=== PATIENT | female | born 1990 | race Caucasian/White ===

== ENCOUNTER → 2018-08-05 09:42 | Outpatient (CLI) | payer BC, SELFPAY ==
[2018-08-05 10:03] LABS: Hematocrit 41.6 % (37-47); Hemoglobin 13.9 g/dl (12.0-15.0); Mean Corp Hgb Conc 33.4 g/gl (32-36); Mean Corpuscular Hgb 28.3 pg (27.0-32.0); Mean Corpuscular Volume 84.6 fL (81-99); Mean Platelet Vol. 11.3 fl (6.2-12.0); Platelet Count 208 K/mm3 (150-450); RBC Distribution Width CV 12.7 % (11.6-14.6); RBC Distribution Width SD 38.7 fl (35.1-43.9); Red Blood Count 4.92 M/mm3 (4.2-5.4); White Blood Count 7.5 K/mm3 (4.4-11.0)
[2018-08-05 10:04] LABS: Scan Indicated on CBC? Y/N NO
[2018-08-05 10:27] LABS: AST(SGOT) 16 U/L (15-37); Alanine Aminotransfer ALT/SGPT 22 U/L (13-56); Albumin, Serum 3.8 g/dL (3.2-5.0); Alkaline Phosphatase 79 U/L (45-117); Anion Gap 10 (5-15); BUN 9 mg/dL (7-18); BUN/Creat Ratio 12.8 RATIO (10-20); Calcium,Total 9.1 mg/dL (8.5-10.1); Chloride 105 mmol/L (98-107); EST Glomerular Filtration Rate 106 mL/min (>60); Est Glom Filt Rate - Afr Amer 129 mL/min (>60); Glucose 107 mg/dL (74-106); Potassium 3.9 mmol/L (3.5-5.1); Protein, Total 7.8 g/dL (6.4-8.2); Sodium Level 139 mmol/L (136-145); Thyroid Stim Hormone (TSH) 1.21 uIU/mL (0.358-3.74)
== END ==
PROVIDERS: Family Provider Nurse Practitioner Family; PCP Nurse Practitioner Family; Visit Provider Nurse Practitioner Family
DX: R53.83 Other fatigue (principal); F41.9 Anxiety disorder, unspecified
CPT/HCPCS: 80053; 84443; 85027

== ENCOUNTER → 2019-04-28 | Outpatient (CLI) | payer BC, SELFPAY ==
[2019-04-28 13:38] LABS: Hematocrit 37.3 % (37-47); Hemoglobin 12.2 g/dl (12.0-15.0); Mean Corp Hgb Conc 32.7 g/gl (32-36); Mean Corpuscular Hgb 27.9 pg (27.0-32.0); Mean Corpuscular Volume 85.4 fL (81-99); Mean Platelet Vol. 11.3 fl (6.2-12.0); Platelet Count 254 K/mm3 (150-450); RBC Distribution Width CV 13.1 % (11.6-14.6); RBC Distribution Width SD 40.9 fl (35.1-43.9); Red Blood Count 4.37 M/mm3 (4.2-5.4); Scan Indicated on CBC? Y/N NO; White Blood Count 7.1 K/mm3 (4.4-11.0)
[2019-04-28 14:00] LABS: AST(SGOT) 18 U/L (15-37); Alanine Aminotransfer ALT/SGPT 31 U/L (13-56); Albumin, Serum 3.9 g/dL (3.2-5.0); Alkaline Phosphatase 75 U/L (45-117); Anion Gap 7 (5-15); BUN 10 mg/dL (7-18); BUN/Creat Ratio 14.9 RATIO (10-20); Calcium,Total 9.1 mg/dL (8.5-10.1); Chloride 106 mmol/L (98-107); Creatinine, Serum 0.67 mg/dL (0.55-1.02); EST Glomerular Filtration Rate 112 mL/min (>60); Est Glom Filt Rate - Afr Amer 135 mL/min (>60); Glucose 79 mg/dL (74-106); Potassium 3.8 mmol/L (3.5-5.1); Protein, Total 7.9 g/dL (6.4-8.2); Sodium Level 141 mmol/L (136-145); Thyroid Stim Hormone (TSH) 0.91 uIU/mL (0.358-3.74)
== END | disposition home or self-care (01) ==
LOC: LABSPEC 13:13
PROVIDERS: Family Provider Nurse Practitioner Family; PCP Nurse Practitioner Family; Referring Provider Nurse Practitioner Family; Visit Provider Nurse Practitioner Family
DX: F41.9 Anxiety disorder, unspecified (principal)
CPT/HCPCS: 80053; 84443; 85027

== ENCOUNTER 2020-06-30 00:30 | Inpatient (IN) | payer BC, SELFPAY ==
[2017-11-30 19:51] VITALS: BMI 30.1
[2020-06-29 23:31] VITALS: TEMP 36.2; TEMP 37.8
[2020-06-29 23:36] VITALS: BP 120/72; PULSE 71
[2020-06-29 23:57] VITALS: TEMP 37.9
[2020-06-30] VITALS (39 sets, daily range): BP systolic 89–136; BP diastolic 51–73; PULSE 64–171; RESP 14–16; TEMP 36.2–37.6; O2SAT 83–100; BMI 30.1
[2020-06-30 00:26] LABS: ROM Internal Control Test YES-OK TO RESULT pt. (Internal QC)
[2020-06-30 00:28] LABS: ROM Patient Test POSITIVE (Negative)
[2020-06-30] MEDS: Lactated Ringers 1,000 ML 50 ML IV (01:00)
[2020-06-30] MEDS: Lactated Ringers 500 ML 999 ML IV (01:05)
[2020-06-30 01:14] LABS: Absolute Lymphocyte Count 1.41 X10^3/uL (0.83-4.51); Absolute Neutrophil Count 8.5 X10^3/uL (2.0-7.7); Basophil# 0.04 X10^3/uL; Basophil% 0.4 % (0-1); Eosinophil# 0.03 X10^3/uL; Eosinophils% 0.3 % (0-5); Hematocrit 35.9 % (37-47); Hemoglobin 11.9 g/dL (12.0-15.0); Lymphocyte # 1.41 X10^3/ul (4.0); Lymphocyte % 13.4 % (19-41); Mean Corp Hgb Conc 33.1 g/dL (32-36); Mean Corpuscular Volume 81.4 fL (81-99); Mean Platelet Vol. 11.4 fl (6.2-12.0); Monocyte# 0.49 X10^3/uL; Monocyte% 4.6 % (0-10); NRBC Flagged by Analyzer 0 % (0-5); Neutrophil # 8.52 X10^3/uL (2.7-7.7); Neutrophil % 80.8 % (47-70); Platelet Count 172 K/mm3 (150-450); RBC Distribution Width CV 14.6 % (11.6-14.6); RBC Distribution Width SD 42.4 fl (35.1-43.9); Red Blood Count 4.41 M/mm3 (4.2-5.4); White Blood Count 10.5 K/mm3 (4.4-11.0)
[2020-06-30] MEDS: Ondansetron 4 MG/2 ML Vial IV (01:17)
[2020-06-30] MEDS: fentaNYL-bupivacaine (epidural) 100 ML BAG EPIDURAL (01:54)
[2020-06-30 02:50] LABS: Probe Check PASS; Specimen Processing Control PASS
--- NOTE | 2020-06-30 03:00 | PCM.HP.OB ---
- Problem List (1) Active labor at term Status: Acute History Date of Admission: 11/30/17 Final YASMEEN: 07/02/20 Final YASMEEN Source: US <20 weeks Gestational age: 39 Weeks and 5 Days History of this : This is a 29 year-old, G [2], P [1001], at 39 weeks gestational age. Presented to labor and delivery in active labor with contractions. uncomplicated. Allergies No Known Allergies Allergy (Verified 06/30/20 01:03) Home Medications: Home Medications Tablet 1 tab PO DAILY 11/30/17 Zoloft 75 mg DAILY 06/29/20 Magnesium 200 mg PO 06/30/20 Smoking Status: Never smoker Alcohol: None Number of Fetus(es): 1 NST - FHR Rate Baby A Baseline: 125 Variability:: Moderate Accelerations:: 15 x 15 Decelerations:: None NST Reactive:: Yes FHR Category:: Category I Uterine Activity:: every 2-4 minutes, strong History Past Pregnancies: Past Pregnancies Delivery Date Name GA/ Weeks Outcome Route Wt Infant Sex Labor Length Anesthesia Delivery Location Provider FOB Labs: Mom's Labs & Results 06/29/20 06/30/20 06/30/20 23:45 01:00 01:00 WBC 10.5 RBC 4.41 Hgb 11.9 L Hct 35.9 L MCV 81.4 MCH 27.0 MCHC 33.1 RDW Std Deviation 42.4 RDW Coeff of Sherwin 14.6 Plt Count 172 MPV 11.4 Immature Gran % (Auto) 0.500 Neut % (Auto) 80.8 H Lymph % (Auto) 13.4 L Kaufman % (Auto) 4.6 Eos % (Auto) 0.3 Baso % (Auto) 0.4 Absolute Neuts (auto) 8.5 H Absolute Lymphs (auto) 1.41 Nucleated RBC % 0 Vag Amniotic Fld Detect POSITIVE H COVID-19 (ROBIN) Blood Type O POSITIVE Antibody Screen NEGATIVE 06/30/20 01:13 WBC RBC Hgb Hct MCV MCH MCHC RDW Std Deviation RDW Coeff of Sherwin Plt Count MPV Immature Gran % (Auto) Neut % (Auto) Lymph % (Auto) Kaufman % (Auto) Eos % (Auto) Baso % (Auto) Absolute Neuts (auto) Absolute Lymphs (auto) Nucleated RBC % Vag Amniotic Fld Detect COVID-19 (ROBIN) Not Detected Blood Type Antibody Screen Course Did the patient receive Yes care? Labs Blood Type: O RH: POSITIVE RPR/VDRL/Syphilis Nonreactive Rubella status Immune HbSAg Negative Date Done: 12/14/19 Chlamydia Negative Gonorrhea Negative HIV/AIDS Non-Reactive Group B Strep: Negative Current Obstetrical History Gestational Diabetes No Incompetent Cervix No Infertility No IUGR No Macrosomia No Hypertension/Pre-eclampsia No Placenta Previa/Abruption No PTL/PROM No Uterine anomaly No Oligohydramnios No Polyhydramnios No Multiple gestation No Past Medical History Asthma No Diabetes No Hypertension No Heart disease No Mitral valve prolapse No Neurologic/Seizure disorder/ No Migraines Kidney disease No Liver disease No Varicosities No Clotting disorders/Hx of DVT No Thyroid Dysfunction No Other medical diseases No Psychiatric disorders Yes: anxiety Major trauma No Abnormal PAP smear No Sleep apnea No Mammogram in the last 2 years No Social History Marital Status: Alleged father Leonard Hx Smoking No Smoking Status Never smoker How long have you used n/a substances (years)? Expected Infant Delivery Method: Spontaneous Vaginal Review of Systems Constitutional: Denies: Chills, Fever, Weight Change HEENT: Denies: Head Aches, Sinus Congestion, Sinus Drainage Cardiovascular: Denies: Chest Pain, Palpitations Respiratory: Denies: Cough, Shortness of breath at rest, Sputum production Gastrointestinal: Denies: Abdominal Pain, Nausea, Vomiting Genitourinary: Denies: Dysuria Musculoskeletal: Denies: Joint Pain, Joint Tenderness Skin: Denies: Rash, Wounds Neurological: Denies: Numbness, Tingling, Focal weakness Psychiatric: Denies: Anxiety, Depression, Homicidal Ideations, Suicidal Ideations Hematologic/ Lymphatic: Denies: Easy Bruising, Easy Bleeding Physical Exam Vitals: Vital Signs Temp Pulse BP Pulse Ox 98.8 F 64 105/51 L 88 06/30/20 02:47 06/30/20 02:53 06/30/20 02:53 06/30/20 02:42 General: Alert, Oriented x3, No apparent distress HEENT: Atraumatic, Normocephalic Cardiovascular: Regular rate, Regular Rhythm, No murmurs Lungs: Clear to auscultation, Normal air movement, No rhonchi, No wheeze Abdomen: Bowel Sounds Present, Gravid Extremities:: No edema Neurological: Neuro grossly intact [employer] REP: Normal external genitalia Estimated gestational size: Appropriate for gestational size Presentation: Cephalic Cervix Dilation (cm): 10 - BBOW, AROM for small amount of clear fluid Station: 1 Effacement (%): 100 Assessment/Plan All Active Problems Active labor at term (Acute) This is a 29 year-old, G [2], P [1001], at 39 weeks gestational age. A:Active Labor Category 1 FHT P: 1) Admit to labor and delivery 2) IV and routine labs. COVID test 3) Epidural for pain management 4) Continuous EFM 5) notified for patient status
[2020-06-30] MEDS: Oxytocin 30 units/NS 500 ml 30 UNITS/500 ML IV.SOLN 334 UNITS IV (03:13)
--- NOTE | 2020-06-30 03:29 | PCM.OPRPT ---
Problem List (1) Active labor at term Status: Acute (2) Vaginal delivery Status: Acute (3) Second degree perineal laceration Status: Acute Vaginal Delivery Maternal Presentation: Active Labor Amniotic Membrane Rupture Type: Artificial Amniotic Fluid Description: Clear Final YASMEEN: 07/02/20 Final YASMEEN Source: US <20 weeks Gestational age: 39 Weeks and 5 Days Date of Procedure: 06/30/20 Pre-Operative Diagnosis: active labor Post-Operative Diagnosis: Surgery/ Procedure Performed: Spontaneous Vaginal Delivery Type of Anesthesia: Epidural Description of Procedure: Progressed to complete with bulging bag of water. AROM clear fluid. Strong pushing efforts. of viable male infant over first degree perineal laceration. APGARS 7, 9. Infant head delivered with body forthcoming, CANx1 delivered through. Placed on maternal abdomen, strong cry. Mouth and nares suctioned for secretions. Terminal meconium. Pitocin started for active 3rd stage management. Cord clamped and cut by father of baby. Placenta delivered via katie intact with maternal effort, 3 vessel cord. Perineum inspected and revealed first degree perineal laceration. Repaired under epidural analgesia with 3.o vicryl rapide. Well approximated and hemostasis achieved. Fundus firm, EBL 200ml. Vaginal sweep and instrument count completed. Mom and baby stable. Family bonding well. Planning to breastfeed. notified. Presentation: Vertex Placental Delivery Description: Spontaneous Placenta Disposition: [facility] Cord Vessel Description: 3 Vessels Cord Entanglement: Around neck x 1, loose Estimated Blood Loss: 200 ml A gender: Male (1 minute): 7 (5 minute): 9 Episiotomy Description: None Laceration: 1st degree Medications given after delivery: IV Pitocin Complications: None
[2020-06-30] MEDS: 0.9% Saline Lock 10 ML Syringe IV (05:47)
[2020-06-30] MEDS: Ibuprofen 600 MG Tablet PO (17:09)
[2020-06-30] MEDS: Acetaminophen 500 MG Tablet 1000 MG PO (19:48)
[2020-07-01] VITALS: BP 115/68; PULSE 69; RESP 16; TEMP 37.3
[2020-07-01] MEDS: Ibuprofen 600 MG Tablet PO ×2 (00:01→07:51)
[2020-07-01 00:04] VITALS: BP 115/68; PULSE 67; TEMP 37.2
[2020-07-01 03:36] VITALS: TEMP 37
[2020-07-01 03:37] VITALS: BP 113/62; PULSE 73; RESP 16; TEMP 36.7
[2020-07-01] MEDS: Acetaminophen 500 MG Tablet 1000 MG PO (04:35)
[2020-07-01 06:50] LABS: Hemoglobin 10.7 g/dL (12.0-15.0); Mean Corp Hgb Conc 32.4 g/dL (32-36); Mean Corpuscular Hgb 27.5 pg (27.0-32.0); Mean Corpuscular Volume 84.8 fL (81-99); Mean Platelet Vol. 11.3 fl (6.2-12.0); Platelet Count 142 K/mm3 (150-450); RBC Distribution Width CV 14.8 % (11.6-14.6); RBC Distribution Width SD 45.2 fl (35.1-43.9); Red Blood Count 3.89 M/mm3 (4.2-5.4); White Blood Count 10.9 K/mm3 (4.4-11.0)
[2020-07-01 07:37] VITALS: BP 118/59; PULSE 67; TEMP 36.3
[2020-07-01 08:03] VITALS: BP 118/59; PULSE 67; RESP 16; TEMP 36.9; O2SAT 99
--- NOTE | 2020-07-01 09:55 | PCM.PN.OB ---
Patient Problems: Active and Suspected Problems Active labor at term (Acute) Vaginal delivery (Acute) Second degree perineal laceration (Acute) Subjective: Doing well per patient and nursing staff. Ambulating and taking PO without difficulty. Voiding and passing flatus. . Lochia normal. Planning d/C home today. - Physical Exam Vitals/I&O's: Vital Signs Temp Pulse Resp BP Pulse Ox 98.5 F 67 16 118/59 L 99 07/01/20 08:03 07/01/20 08:03 07/01/20 08:03 07/01/20 08:03 07/01/20 08:03 Oxygen Delivery Method Room Air Weight: 181 lb Body Mass Index (BMI) 30.1 Intake and Output for Last 24 Hours 06/29/20 06/30/20 07/01/20 23:59 23:59 23:59 Intake Total 1109.17 / 1109.17 Output Total 900 / 900 Balance 209.17 / 209.17 General: Alert, Oriented x3, Cooperative HEENT: Atraumatic, Normocephalic Neck: Trachea Midline Lungs: Clear to auscultation, Normal air movement, No rhonchi, No wheeze Cardiovascular: Regular rate, Regular Rhythm, No murmurs Abdomen: Bowel Sounds Present, Soft - fundus firm 2 below U Extremities: No edema Neurological: Deep Tendon Reflexes 2+/4 and Symmetrical Psych/Mental Status: Normal Affect, Appropriate Laboratory Results 07/01/20 06:40: WBC 10.9, RBC 3.89 L, Hgb 10.7 L, Hct 33.0 L, MCV 84.8, MCH 27.5, MCHC 32.4, RDW Std Deviation 45.2 H, RDW Coeff of Sherwin 14.8 H, Plt Count 142 L, MPV 11.3 Current Medications Acetaminophen (Tylenol) 1,000 mg PO Q8H PRN PRN PRN Reason: Pain Score 1-10/10 Last Admin: 07/01/20 04:35 Dose: 1,000 mg Documented by: Bisacodyl (Dulcolax) 10 mg RECTAL UD PRN PRN Reason: If no BM Dibucaine (Dibucaine) 1 applic TOPICAL TID PRN PRN; Protocol PRN Reason: Discomfort Hydrocortisone (Hytone) 1 applic TOPICAL TID PRN PRN; Protocol PRN Reason: Discomfort Ibuprofen (Motrin) 600 mg PO Q6H PRN PRN PRN Reason: Pain Score 1-10/10 Last Admin: 07/01/20 07:51 Dose: 600 mg Documented by: Methylergonovine Maleate (Methergine) 0.2 mg IM X1 PRN PRN Reason: Excess bleeding/uterine atony Ondansetron HCl (Zofran) 4 mg IV Q4H PRN PRN PRN Reason: Nausea Senna/Docusate Sodium (Senokot-S, Noemy-Colace) 1 - 2 tablet PO DAILY PRN PRN PRN Reason: Constipation Simethicone (Mylicon) 80 mg PO PCHS PRN PRN Reason: Indigestion/Stomach pain Sodium Chloride () 5 - 15 ml IV UD PRN PRN Reason: SALINE FLUSH Last Admin: 06/30/20 05:47 Dose: 10 ml Documented by: Medical Necessity - Tobacco Use Smoking Status: Never smoker Assessment/Plan All Active Problems Active labor at term (Acute) Vaginal delivery (Acute) Second degree perineal laceration (Acute) A:PPD #1 P: 1) Routine care 2) Hgb and vitals stable 3) d/C home 4) follow up in 2weeks virtual visit and 6 weeks in office
--- NOTE | 2020-07-01 09:58 | DCINST_ITS ---
Discharge Diet: No Restrictions Discharge Activity: Return to Normal Activity, May not drive while taking narcotic pain medications., May Shower May resume sexual activity in: 4-6 weeks Weight Bearing Status: Full weight bearing Additional Activity Instructions:: Nothing in the vagina for 4-6 weeks. You may return to work/school in 6 weeks. Call your doctor if your incision/area has: Continuous Slow Oozing, Sudden Increased Bleeding, Increased Pain/ Swelling, Increased Redness, Foul Smelling Discharge Call your doctor if you observe: Fever of 101 or Higher Additional Instructions: If you experience any of the following, contact your healthcare provider. * Bleeding that soaks a pad every hour for 2 hours * Fever 100.4 or higher * Unrelieved incision or abdominal pain * Swelling, redness, discharge or bleeding from your incision or episiotomy site * Your incision begins to separate * Problems urinating (including inability to urinate or burning while ur inating). * Visual changes * Severe headache * Flu-like symptoms * Pain or redness in one of both of your breasts * Pain, warmth, tenderness or swelling in your legs, especially the calf area * Frequent nausea and vomiting * Symptoms of depression or anxiety If you experience any of the following, call 911 or go to the nearest Emergency Room. * Chest pain * Problems breathing * Seizure activity * Partial or complete paralysis of a body part, slurred speech, weakness or drooping of the face, or a sudden inability to walk or hold your balance Allergies/Adverse Reactions: Allergies No Known Allergies Allergy (Verified 06/30/20 01:03) Medications to take at Discharge Tablet 1 tab PO DAILY 11/30/17 Zoloft 75 mg DAILY 06/29/20 Ibuprofen [Motrin] 600 mg PO Q6H PRN PRN #30 tab 07/01/20 The following prescriptions were given: Ibuprofen [Motrin] 600 mg PO Q6H PRN PRN #30 tab PRN Reason: Pain Score 1-10/10 Transmission Status: Pending to [id number] Please Follow Up With: Sidra Canseco CNM When: Call to make an appointment with your doctor in 2 weeks and 6 weeks. Primary Care Physician: Edel Diaz NP-C [Primary Care Provider] - Test Results: Test results from this visit will be discussed in further detail at your follow- up appointment, if applicable.
== END 2020-07-01 12:30 | disposition home or self-care (01) | DRG 807 ==
LOC: WPOUT 00:32 → WP 00:32
PROVIDERS: Admitting Provider Advanced Practice Midwife; PCP Nurse Practitioner Family; Referring Provider Advanced Practice Midwife; Visit Provider Advanced Practice Midwife
DX: O77.0 Labor and delivery complicated by meconium in amniotic fluid (principal); Z37.0 Single live birth; O69.81X0 Labor and delivery complicated by cord around neck, without compression, not applicable or unspecified; O70.0 First degree perineal laceration during delivery; Z3A.39 39 weeks gestation of pregnancy
CPT/HCPCS: 59025; 59050; 84112; 85025; 85027; 86850; 86900; 86901; 87635; 94799; 99218; J7120; A4216; G0378; J2405; U0003

== ENCOUNTER → 2021-03-12 | Outpatient (CLI) | payer OTHER, SELFPAY ==
[2020-06-30 00:56] VITALS: BMI 30.1
[2021-03-12 17:17] LABS: Hematocrit 42.9 % (37-47); Hemoglobin 13.8 g/dL (12.0-15.0); Mean Corp Hgb Conc 32.2 g/dL (32-36); Mean Corpuscular Hgb 26.9 pg (27.0-32.0); Mean Corpuscular Volume 83.6 fL (81-99); Mean Platelet Vol. 11.5 fl (6.2-12.0); Platelet Count 268 K/mm3 (150-450); RBC Distribution Width CV 13.4 % (11.6-14.6); RBC Distribution Width SD 41.3 fl (35.1-43.9); Red Blood Count 5.13 M/mm3 (4.2-5.4); White Blood Count 11.8 K/mm3 (4.4-11.0)
[2021-03-12 17:25] LABS: Anion Gap 5 (5-15); BUN 9 mg/dL (7-18); BUN/Creat Ratio 10.4 RATIO (10-20); Calcium,Total 9.3 mg/dL (8.5-10.1); Chloride 108 mmol/L (98-107); Creatinine, Serum 0.86 mg/dL (0.55-1.02); EST Glomerular Filtration Rate 82 mL/min (>60); Est Glom Filt Rate - Afr Amer 100 mL/min (>60); Glucose 89 mg/dL (74-106); Potassium 3.5 mmol/L (3.5-5.1); Sodium Level 140 mmol/L (136-145)
== END | disposition home or self-care (01) ==
LOC: LABSPEC 16:57
PROVIDERS: PCP Nurse Practitioner Family; Visit Provider Nurse Practitioner Family
DX: R53.83 Other fatigue (principal); R25.2 Cramp and spasm
CPT/HCPCS: 80048; 85027

== ENCOUNTER → 2021-04-15 | Outpatient (CLI) | payer OTHER, SELFPAY ==
[2020-06-30 00:56] VITALS: BMI 30.1
[2021-04-15 10:22] LABS: Hematocrit 40.3 % (37-47); Hemoglobin 13.3 g/dL (12.0-15.0); Mean Corpuscular Hgb 27.7 pg (27.0-32.0); Mean Platelet Vol. 11.2 fl (6.2-12.0); Platelet Count 220 K/mm3 (150-450); RBC Distribution Width CV 12.8 % (11.6-14.6); RBC Distribution Width SD 39.4 fl (35.1-43.9); White Blood Count 7.6 K/mm3 (4.4-11.0)
== END | disposition home or self-care (01) ==
LOC: LABSPEC 10:02
PROVIDERS: PCP Nurse Practitioner Family; Referring Provider Nurse Practitioner Family; Visit Provider Nurse Practitioner Family
DX: R89.9 Unspecified abnormal finding in specimens from other organs, systems and tissues (principal)
CPT/HCPCS: 85027

== ENCOUNTER → 2021-10-07 | Outpatient (CLI) | payer OTHER, SELFPAY ==
[2021-10-07 17:33] LABS: Thyroid Stim Hormone (TSH) 0.73 uIU/mL (0.358-3.74)
== END | disposition home or self-care (01) ==
LOC: LABSPEC 10-08 13:25
PROVIDERS: PCP Nurse Practitioner Family
DX: R53.83 Other fatigue (principal); R41.89 Other symptoms and signs involving cognitive functions and awareness
CPT/HCPCS: 84443

== ENCOUNTER 2022-01-23 06:02 | Day surgery (SDC) | payer BC, SELFPAY ==
--- NOTE | 2022-01-23 | FALS_PTH ---
PATIENT: VITA FIGUEROA LOC: [facility] – [place] U#:[id number] AGE/SX: 31/F ROOM: RE01/23/[address]: Dr. Isis Ribeiro MD : 1990 BED: DIS: 01/23/2022 SPEC #: [id number] RECD: 01/23/22 12:44 STATUS: MARIFER REHair #: [id number] KELVIN: 01/23/22 00:[address]: Isis Ribeiro DEPT: SURGICAL PATHOLOGY RECD BY: Jesse Stewart ENTERED: 01/23/22 12:45 SP TYPE: FALL TUBES OTHR DR: Edel Diaz, MELONIE-Scooby Tissues: Fallopian tube Procedures: Surgery Specimen Level II HEADER OPERATION: Laparoscopic salpingectomy PRE-OP DIAGNOSIS: Sterilization TISSUE SUBMITTED: Bilateral fallopian tubes MICROSCOPIC DIAGNOSIS Right and left fallopian tubes, bilateral salpingectomies: Complete cross-sections of fallopian tubes with no pathologic change. AM:donovan 01/24/2022 MICROSCOPIC DESCRIPTION Slides are reviewed. GROSS DESCRIPTION Received in fixative is one container labeled with the patient's name and designated bilateral fallopian tubes. The specimen consists of two fallopian tubes with an average length of 8.2 cm and has an average diameter of 0.7 cm. Both fallopian tubes have normal fimbriated ends. No mass lesions are identified. Ice Puller sections are submitted in two cassettes as follows: 1 - one fallopian tube, 2??the other fallopian tube. / AM:donovan 01/23/2022 TC:4 CPT: 45471 x2
[2022-01-23 06:36] VITALS: BP 122/75; PULSE 90; RESP 16; TEMP 36.6; O2SAT 100; BMI 26.4
[2022-01-23 06:37] LABS: Internal QC Validated? YES +Cl - CLEAR BKGD; Pregnancy, Urine Negative Negative
[2022-01-23] MEDS: Acetaminophen 500 MG Tablet 1000 MG PO (06:45)
[2022-01-23] MEDS: Lactated Ringers 1,000 ML 15 ML IV (06:45)
[2022-01-23] MEDS: Celecoxib 200 MG Capsule 400 MG PO (06:46)
[2022-01-23 07:05] LABS: Hematocrit 41.7 % (37-47); Hemoglobin 14.2 g/dL (12.0-15.0); Mean Corp Hgb Conc 34.1 g/dL (32-36); Mean Corpuscular Hgb 28.7 pg (27.0-32.0); Mean Corpuscular Volume 84.4 fL (81-99); Mean Platelet Vol. 10.7 fl (6.2-12.0); Platelet Count 241 K/mm3 (150-450); RBC Distribution Width CV 13.2 % (11.6-14.6); RBC Distribution Width SD 40.5 fl (35.1-43.9); Red Blood Count 4.94 M/mm3 (4.2-5.4); White Blood Count 7.4 K/mm3 (4.4-11.0)
[2022-01-23 07:19] LABS: AST(SGOT) 17 U/L (15-37); Alanine Aminotransfer ALT/SGPT 18 U/L (13-56); Albumin, Serum 4.1 g/dL (3.2-5.0); Alkaline Phosphatase 68 U/L (45-117); Bilirubin, Direct 0.13 mg/dL (0.00-0.30); Globulin 3.6 g/dL (2.2-4.2); Protein, Total 7.7 g/dL (6.4-8.2)
--- NOTE | 2022-01-23 07:26 | DCINST_ITS ---
Discharge Instructions Diet Discharge Diet: No restrictions Activity May resume sexual activity in: 1 week Dressing / Incision Call your doctor if your incision/area has: Sudden Increased Bleeding and Foul Smelling Discharge Call your doctor if you observe: Fever of 101 or Higher Cleanse incision/area with: Soap & Water (Your incisions have skin glue and it can get wet. Leave on until it falls off) Follow Up Care Please Follow Up With: Isis Ribeiro MD When: In my office or virtual visit in 1-2 weeks or as needed Test Results: Test results from this visit will be discussed in further detail at your follow-up appointment, if applicable. Discharge Plan Admission Primary Reason for Your Visit: tubal sterilization Attending Provider: Isis Ribeiro Primary Care Provider: Edel Diaz NP Discharge Orders/Prescriptions Prescriptions: New ibuprofen [ibuprofen] 600 MG tablet 600 mg PO Q6H PRN (Reason: Pain) 20 Days Qty: 60 RF: 1 Continued Zoloft 200 mg PO/SL QHS RF: 0 multivitamin Capsule 1 cap PO DAILY RF: 0 cranberry 450 mg Tablet 450 mg PO DAILY RF: 0 Probiotic 3 billion cell Capsule 3,000 mmu cells PO DAILY RF: 0 d-mannose 500 mg Capsule 500 mg PO DAILY RF: 0 Referrals / Follow Up: Edel Diaz NP, CABLE TV INSTALLER-C [Primary Care Provider] - Disposition Disposition (needs filled in before D/C Order can be placed): Home, Self Care
[2022-01-23] MEDS: Bupivacaine Mpf 0.5% 30 ML VIAL (07:47)
--- NOTE | 2022-01-23 08:06 | PCM.OPRPT ---
Problems Associated Problem List Diagnoses (1) Consultation for sterilization: Report of Operation Pre-Operative Diagnosis: Sterilization request Post-Operative Diagnosis: Same Surgery/Procedure Performed:: Laparoscopic bilateral salpingectomy Description of Surgical Findings:: Normal cervix and vagina, normal uterus tubes and ovaries. Otherwise unremarkable peritoneal cavity Surgeon: Isis Ribeiro parachute accessories attacher: None Type of Anesthesia: General Anesthesiologist: Mitch Henry Special Medications: none Specimen's removed: Bilateral fallopian tube Drains: none Estimated Blood Loss (mL): 10 Fluids Replaced: 1000 Description of Procedure: The patient was taken to the operating room where she was prepped and draped in the dorsolithotomy position. A weighted speculum was placed in the vagina and the anterior lip of the cervix was grasped with a tenaculum. The [employer] uterine manipulator was placed and the remainder of the instruments were removed from the vagina. Attention was turned to the abdomen. All port sites were infiltrated with 0.5% Marcaine before skin incisions were made. A 5 mm [intraumbilical] incision was made. The anterior abdominal wall was tented up with 2 towel clamps while a 5 mm blade less trocar and sleeve were [directly inserted]. Intraperitoneal placement was confirmed with the laparoscope. The pneumoperitoneum was created and the underlying abdominal contents were intact. The patient was placed in Trendelenburg. Right and left lower quadrant ports were placed under direct visualization lateral to the inferior epigastric vessels. The bowel was swept away and the above findings were noted. The Enseal device was used to clamp seal and transect the antimesenteric portions of the right tube to the cornual insertion of the uterus. The tube was amputated from the uterus and the pedicles were all confirmed to be hemostatic. The same procedure was performed on the contralateral side. The specimens were brought out through a 5 mm port. The pedicles were again examined and found to be hemostatic. The lateral ports were removed under direct visualization and no active bleeding was noted. The pneumoperitoneum was released. The skin incisions were closed with Monocryl suture in a subcuticular fashion and skin glue . The vaginal instruments were removed and the vaginal sweep was completed by T the entire procedure was performed by me. All sponge and needle counts were correct and the patient was taken to the recovery room in stable condition. Grafts/Implants Used: none Procedure Start Time: 07:47 Procedure Stop Time: 08:05 Complications none Admit VTE Documentation VTE Present on Admission: No VTE Mechan Device Prophylaxis: SCD's VTE Pharm Prophylaxis ordered?: No Reason prophylaxis not ordered:: Procedure Not Indicated
[2022-01-23 08:25] VITALS: BP 118/59; PULSE 109; RESP 16; TEMP 36.1; O2SAT 99
[2022-01-23 08:31] VITALS: BP 121/73; PULSE 99; RESP 14; O2SAT 99
[2022-01-23 08:45] VITALS: BP 108/69; PULSE 90; RESP 14; O2SAT 99
[2022-01-23 08:54] LABS: International Normalized Ratio 1.1; Prothrombin Time (Protime)PT. 13.8 SECONDS (11.7-14.9)
[2022-01-23 09:04] VITALS: BP 118/74; PULSE 72; RESP 16; TEMP 36.4; O2SAT 100
[2022-01-23 10:00] VITALS: BP 122/75; BP 125/72; PULSE 80; RESP 16; TEMP 36.6; O2SAT 100
== END 2022-01-23 23:59 | disposition home or self-care (01) ==
LOC: SDC 06:06 → AC 06:07
PROVIDERS: Anesthesiology; PCP Nurse Practitioner Family; Referring Provider Obstetrics & Gynecology; Visit Provider Obstetrics & Gynecology
PROC: (CPT 58661; principal; 2022-01-23 07:15)
DX: Z30.2 Encounter for sterilization (principal); F41.9 Anxiety disorder, unspecified; Z79.899 Other long term (current) drug therapy
CPT/HCPCS: 58661; 00840; 80076; 81025; 85027; 85610; 85730; 88302; J7120; C1760; J2405

== ENCOUNTER → 2025-10-05 | Outpatient (CLI) | payer BC, SELFPAY | END | disposition home or self-care (01) | LOC: BFHLAB 12:15 | PROVIDERS: PCP Nurse Practitioner Family; Visit Provider Nurse Practitioner Family | DX: E03.9 Hypothyroidism, unspecified (principal) | CPT/HCPCS: 36415; 84439; 84443 ==